=== PATIENT | female | born 1980 | race Hispanic/Latino ===

== ENCOUNTER → 2020-07-24 16:34 | Outpatient (CLI) | payer OTHER, SELFPAY ==
[2020-07-24] MEDS: COVID-19 VACC, Ad26(JANSSEN)/PF 0.5 ML IM (16:40)
== END ==
PROVIDERS: Visit Provider Internal Medicine
DX: Z23 Encounter for immunization (principal)
CPT/HCPCS: 0031A; 91303

== ENCOUNTER 2025-02-26 10:35 | Emergency (ER) | payer OTHER, SELFPAY ==
[2025-02-26] VITALS (7 sets, daily range): BP systolic 146; BP diastolic 81–95; PULSE 82–101; RESP 16; TEMP 36.6–36.8; O2SAT 98–100; BMI 29.2
--- NOTE | 2025-02-26 10:58 | PC.NURSE ---
Pt up to [place]. States her symptoms have improved. VSS, NAD. Speaking in full sentences.
[2025-02-26] MEDS: methylPREDNISolone succ 125 MG/2 ML VIAL IV (11:14)
[2025-02-26] MEDS: FAMOTIDINE 20 MG/2 ML VIAL IV (11:14)
--- NOTE | 2025-02-26 11:14 | ED_ITS ---
HPI - Allergic Reaction General Chief complaint: Allergic Reaction Stated complaint: allergic reaction Time Seen by Provider: 02/26/25 10:38 History of Present Illness HPI narrative: Patient is a 44-year-old female history of pacemaker she has a know why presenting today with allergic reaction. She reports she has pancakes and frozen strawberry something she has always had suddenly she felt itching all over if somebody noticed time she started feeling some throat swelling. She received epinephrine 50 of Benadryl prior to arrival. She is actually starting to feel a lot better no difficulty breathing. She has no prior history of allergic reaction or anaphylaxis. She is not on an PADMINI inhibitor Related Data Previous Rx's ?Medication ?Instructions ?Recorded epinephrine 0.3 mg/0.3 mL 0.3 mg (0.3 mL) IM Q5-15M AR N 02/26/25 injection, auto-injector anaphylaxis #2 ea Allergies Allergy/AdvReac Type Severity Reaction Status Date / Time No Known Drug Allergies Allergy Verified 02/26/25 10:36 Exam Initial Vital Signs Initial Vital Signs: Vital Signs Pulse Oximetry 100 02/26/25 10:40 GENERAL: Alert very well-appearing 41-year-old female and in no acute distress. HEENT: Head atraumatic,EOMI, pupils reactive, face symmetric, moist mucous memb ranes CARDIOVASCULAR: Regular rate and rhythm without murmurs, rubs or gallops. RESPIRATORY: Breath sounds equal bilaterally, no wheezes rales or rhonchi. ABDOMEN: Soft, nontender. Normoactive bowel sounds all 4 quadrants. No guarding or rebound. EXTREMITIES: Normal range of motion, no clubbing or edema. Neurovascularly intact NEUROLOGICAL: Alert and oriented x4.Normal gait and speech. Cranial nerves II through XII grossly intact. SKIN: Warm, dry, no laceration, no petechiae, no rashes or lesions. No urticaria present Course Orders Ordered: Famotidine (Famotidine 20 Mg/2 Ml Vial) 20 mg IV NOW CINTIA Last Admin: 02/26/25 11:14 Dose: 20 mg Documented By: MAI Discontinued Medications Methylprednisolone (Methylprednisolone Succ 125 Mg/2 Ml Vial) 125 mg IV NOW ONE Stop: 02/26/25 11:07 Last Admin: 02/26/25 11:14 Dose: 125 mg Documented By: MAI Vital Signs Vital signs: Vital Signs - 8 hr 02/26/25 10:40 10/15/25 10:41 02/26/25 10:41 Temperature Pulse Rate 88 Respiratory Rate Blood Pressure 146/95 H Pulse Oximetry 100 99 Oxygen Delivery Method 02/26/25 10:43 02/26/25 11:08 02/26/25 11:30 Temperature 97.8 F Pulse Rate 84 93 H 82 Respiratory Rate 16 Blood Pressure 146/95 H Pulse Oximetry 100 99 Oxygen Delivery Method Room Air 02/26/25 12:36 02/26/25 12:37 02/26/25 12:37 Temperature 98.3 F Pulse Rate 101 H 90 Respiratory Rate Blood Pressure 146/81 H Pulse Oximetry 100 98 Oxygen Delivery Method MDM - Allergic Reaction MDM Narrative Medical decision making narrative: Patient 44-year-old female history of pacemaker presenting today with anaphylactic reaction. Unclear to what. She has never had anaphylaxis before. No evidence of angioedema no concern that it is related to an PADMINI inhibitor she is not on 1. She quickly improved with epinephrine Benadryl she was given Pepcid and Solu-Medrol here. Discharge Plan Departure Patient Disposition: Home Clinical Impression: Anaphylaxis Instructions: DI for Anaphylaxis Activity Restrictions/Additional Instructions: *You have been diagnosed with anaphylaxis *What to do: At this time unclear what you are allergic to. You may require some food allergy testing especially if this happens again. *Continue to take medications as directed Epinephrine, take only if needed for difficulty breathing if you do use it please call 911 and come to the ED immediately *Follow up with your primary care provider in 2-3 days or call [phone] *Return to ER if you should have increasing difficulty breathing tongue swelling lip or any new, worsening or concerning symptoms Prescriptions: New epinephrine 0.3 mg/0.3 mL auto-injector 0.3 mg IM Q5-15M PRN (Reason: anaphylaxis) Qty: 2 0RF Rx Instructions: do not exceed 3 doses per episode Stand Alone Forms: Patient Portal/API
== END 2025-02-26 12:50 | disposition home or self-care (01) ==
PROVIDERS: Emergency Provider Emergency Medicine
DX: T78.2XXA Anaphylactic shock, unspecified, initial encounter (principal); L29.9 Pruritus, unspecified; Z95.0 Presence of cardiac pacemaker
CPT/HCPCS: 96374; 96375; 99284; J2919